=== PATIENT | male | born 1955 | race Caucasian/White ===

== ENCOUNTER 2020-12-09 05:11 | Day surgery (SDC) | payer OTHER ==
[2020-12-08 11:56] LABS: ALANINE AMINOTRANSFERASE 81 U/L (12-78); ANION GAP 9 mmol/L (5-15); CALCIUM 9.5 mg/dL (8.5-10.1); CHLORIDE 99 mmol/L (98-107); CREATININE 0.63 mg/dL (0.7-1.3)
[2020-12-08 11:58] LABS: ALKALINE PHOSPHATASE 98 U/L (45-117); BILIRUBIN,TOTAL 0.9 mg/dL (0.2-1.0)
[~2020-12-09] VITALS: Ht 177.8 cm; Wt 53.8 kg
[~2020-12-09 05:11] MED LIST: ASPI81TA45 PO; LISI-167 PO
[2020-12-09] MEDS ORDERED: METOPROLOL PO (05:59)
[2020-12-09] MEDS ORDERED: LACTATED RINGERS 1,000 ML IV SCH (06:00)
[2020-12-09] MEDS ORDERED: CHLORHEXIDINE 15 ML UDC PO ONE (06:00)
[2020-12-09 06:01] VITALS: BP 141/102
[2020-12-09] MEDS ORDERED: CHLORHEXIDINE 15 ML UDC ONE (06:05)
[2020-12-09] MEDS ORDERED: CLINDAMYCIN 150 MG/ML, 6ML ONE (06:08)
[2020-12-09] MEDS ORDERED: VANCOMYCIN PER PHARMACY MC PRN (06:30)
[2020-12-09] MEDS ORDERED: FENTANYL PF 100 MCG/2ML ONE (06:36)
[2020-12-09] MEDS ORDERED: MIDAZOLAM 1 MG/ML, 2ML ONE (06:36)
[2020-12-09] MEDS ORDERED: BUPIVACAINE LIPOSOME/PF 10ML INFIL ONE (06:52)
[2020-12-09] MEDS ORDERED: PHENYLEPHRINE 10 MG/ML ONE (06:57)
[2020-12-09] MEDS ORDERED: EPHEDRINE 50 MG/ML, 1ML ONE ×2 (06:57→09:25)
[2020-12-09] MEDS ORDERED: VANCOMYCIN 1,000 MG in SODIUM CHLORIDE 0.9% 100 ML IV ONE (07:00)
[2020-12-09] MEDS ORDERED: LIDOCAINE-MPF 2% ,5ML ONE (07:49)
[2020-12-09] MEDS ORDERED: BUPIVACAINE/PF 0.25% ONE (07:58)
[2020-12-09] MEDS ORDERED: MIDAZOLAM 1 MG/ML, 2ML IV PRN (08:00)
[2020-12-09] MEDS ORDERED: ALBUTEROL SULFATE 2.5 MG/3 ML NPPB PRN (08:00)
[2020-12-09] MEDS ORDERED: FENTANYL PF 100 MCG/2ML IV PRN (08:00)
[2020-12-09] MEDS ORDERED: OXYcodone 5 MG/5 ML ORAL.SOL UDC PO PRN (08:00)
[2020-12-09] MEDS ORDERED: MEPERIDINE/PF 25MG/0.5ML IVPush PRN (08:00)
[2020-12-09] MEDS ORDERED: HYDROmorphone 1 MG/ML, 1ML INJ IVPush PRN (08:00)
[2020-12-09] MEDS ORDERED: ACETAMINOPHEN 325 MG TABLET PO PRN (08:00)
[2020-12-09] MEDS ORDERED: PROMETHAZINE 25 MG/ML, 1ML IVPush PRN (08:00)
[2020-12-09] MEDS ORDERED: METOPROLOL 1 MG/ML, 5ML IV PRN (08:00)
[2020-12-09] MEDS ORDERED: GLYCOPYRROLATE 0.2MG/1ML, 5ML ONE (08:24)
[2020-12-09] MEDS ORDERED: CEFAZOLIN 1,000 MG ONE (08:24)
[2020-12-09] MEDS ORDERED: NEOSTIGMINE 1 MG/ML, 10ML ONE (08:24)
[2020-12-09] MEDS ORDERED: PROPOFOL 10 MG/ML, 20ML ONE (08:24)
[2020-12-09] MEDS ORDERED: ROCURONIUM 10MG/ML,5ML ONE (08:24)
[2020-12-09] MEDS ORDERED: DEXAMETHASONE 4 MG/ML, 1ML ONE (08:24)
[2020-12-09] MEDS ORDERED: ONDANSETRON 2MG/ML, 2ML ONE (08:24)
[2020-12-09] MEDS ORDERED: METOPROLOL PO SCH (09:00)
[2020-12-09] MEDS ORDERED: ASPIRIN 81 MG TABLET EC PO SCH (09:00)
[2020-12-09] MEDS ORDERED: LISINOPRIL 10 MG TABLET PO SCH (09:00)
[2020-12-09] MEDS ORDERED: EPHEDRINE 50 MG/ML, 1ML IVPush STA (09:47)
[2020-12-09] MEDS ORDERED: EPHEDRINE 50 MG/ML, 1ML IM ONE (10:00)
[2020-12-09] MEDS ORDERED: EPHEDRINE 50 MG/ML, 1ML IVPush ONE (13:00)
== END 2020-12-09 12:10 | disposition home or self-care (01) ==
LOC: OUT 05:11
PROVIDERS: ATTEND Orthopaedic Surgery
DX: S42.202P Unspecified fracture of upper end of left humerus, subsequent encounter for fracture with malunion (principal); M19.012 Primary osteoarthritis, left shoulder; I10 Essential (primary) hypertension; I25.10 Atherosclerotic heart disease of native coronary artery without angina pectoris; F17.210 Nicotine dependence, cigarettes, uncomplicated; Z20.822 Contact with and (suspected) exposure to COVID-19; Z79.899 Other long term (current) drug therapy; X58.XXXD Exposure to other specified factors, subsequent encounter
CPT/HCPCS: 23472; 36415; 64415; 80053; 87081; 93005; C1713; C1769; C1776; J0690; J1100; J2250; J2370; J2405; J2704; J2710; J3010; J3370; J7120; U0003; U0005